=== PATIENT | female | born 1980 | race Caucasian/White ===

== ENCOUNTER 2017-07-14 09:34 | Emergency (ER) | payer MEDICAID ==
[~2017-07-14] VITALS: Ht 152.4 cm; Wt 117.9 kg
--- NOTE | 2017-07-14 10:05 | Emergency Room Report ---
History of Present Illness Time Seen by [id number] Presenting Problem in Triage Pt arrived:Walked Presenting Problem:PT REPORTS R KNEE AND LOWER LEG PAIN THAT BEGAN YESTERDAY. PT REPORTS PAIN WORSENS WITH MOVEMENT. Onset of symptoms date/time:07/13/17 or onset unknown for: Treatment Prior to Arrival: [employer] Provided by: Sepsis Risk Assessment: Temp: 97.8 B/P: 140/83 MAP: 102 Pulse: 92 Resp: 18 Recent fever? N Clinical Suspician of Infection? N Mental Status: 1 - Regular (Normal Baseline) Sepsis Risk:Low Sepsis Risk Have you (or family members/close friends) recently traveled outside the [place]? N If Yes, where/when: Have you had exposure to infectious disease within the past month? N TB? Other? 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 Pain with flexion of knee, mostly medial knee pain, and reports a history of a "pop" several months ago and has had medial knee pain with movement since that time. She reports no pain with WB, no swelling, no numbness, no calf pain. Some relief with Ibuprofen PRN. Exam Limitations no limitations ALLERGIES Coded Allergies: latex (10/05/15) History Medical History General CAD? No Angina: No MD: No Hypertension? No Hyperlipidemia? No CHF? No DVT? No PE? No COPD? No Asthma? No Anemia? No GERD? No Gastric ulcers? No GI Bleed? No Hernia? No Thyroid Problems? No Hypothyroidism? No CVA? No Seizures? No Diabetes? No Insulin Dependent: No Insulin Pump: No Home FSBS? No Renal Insuffiency? No End Stage Renal Disease? No UTI? No Stones? No BPH? No GB Disease: No Nephritic Syndrome? No Asplenia? No Hepatitis? No Sickle Cell Disease? No Arthritis? No Migraines? No Cataracts? No Glaucoma? No MRSA? No HIV? No TB? No Anxiety? No Depression? No Cancer? No More? No Immunization Hx DT/Tetanus Unknown Surgical Hx Previous Surgery?Y 2001, 2006 [employer] Hx LMP On Depo Med-LMP Unknown Social History Smoking Hx Smoker: Never Smoker Tobacco: No Alcohol Alcohol: No Review of Systems All Other Systems Reviewed and Negative Musculoskeletal see HPI Physical Exam Vital Signs Vital Signs Date Time Temp Pulse Resp B/P Pulse O2 O2 Flow FiO2 Ox Delivery Rate 07/14 1039 98.0 97 16 145/92 95 07/14 1028 97 16 145/92 95 07/14 0940 97.8 92 18 140/83 97 General Appearance normal appearance, WD/WN, no apparent distress Eye Exam - bilateral eye normal exam, bilateral eye PERRL Respiratory Status No: respiratory distress. Cardiovascular no peripheral edema, normal peripheral pulses Extremities normal range of motion, normal inspection, normal capillary refill, no calf tenderness, no pedal edema, No ballottement, no rotation or shortening of limb, neg Carmenza's, some pain with flexion of knee with no asymmetry, click, or pop. Patient ambulatory with well perfused limb, brisk CR, fully sensate, strong DP and PT pulses on R. Strength 5 Upper Ext (L), 5 Upper Ext (R), 5 Lower Ext (L), 5 Lower Ext (R) Neurologic alert, normal exam, no motor/sensory deficits, oriented x 3 Glascow Coma Scale Glascow Coma Scale Response Value EYE response: 4 Spontaneously 4 MOTOR response: 6 OBEYS 6 VERBAL response: 5 Oriented & Converses 5 Total 15 Medical Decision Making LABS/Meds/Orders Pt receiving controlled substance in ED? No Results/Orders Orders Procedure Date/time Status KNEE-3 VIEWS-RT 07/14 0945 Active XRAY/CT/US XRAY/CT/US XRAY knee XR interpretation by reviewed by me (report reviewed) Xray Results normal/NAD (neg acute per report) Departure Departure Time of Disposition 1021 Disposition DC Home or Self Care(routine) Clinical Impression Primary Impression: Knee pain, right Qualifiers: Chronicity: unspecified Qualified Code: M25.561 - Pain in right knee Condition STABLE Referrals NAOMI YAP, CLARISSA (Family) Patient Instructions DI for Knee Pain Additional Instructions Naproxen instead of Ibuprofen, see Clarissa next week for recheck Discharge Counseling Counseled pt/family regarding diagnosis, test results, medications/RX, home care, follow up needs Prescriptions Current Visit Scripts NAPROXEN (NAPROXEN 500MG TAB) 500 MG PO BIDP PRN pain #20 TAB ED Critical Care Critical Care No at 2030
--- NOTE | 2017-07-14 10:15 | RADIOLOGY REPORT PS360 ---
KNEE-3 VIEWS-RT HISTORY: PAIN, WORSENS WITH MOVEMENT Patient Age: 36 years: Female Ordering Physician: TECHNIQUE: 3 view right knee nonweightbearing COMPARISON : None FINDINGS No fracture. Joint space fairly well maintained on this nonweightbearing study.. Minor sharpening the margins of tibial plateau questionably reflect some scant early degenerative changes but unimpressive Lateral view shows no joint effusion. IMPRESSION: Right knee intact. No acute findings Joint space well maintained Perhaps very minor sharpening at margins of tibial plateau- could reflect scant very early degenerative features but unimpressive
[2017-07-14] MEDS ORDERED: NAPROXEN SODIU500 MG PO (10:22)
[2017-07-14 10:39] VITALS: BP 145/92
== END 2017-07-14 10:39 | disposition home or self-care (01) ==
LOC: ER 09:34
DX: M25.561 Pain in right knee (principal); Z91.040 Latex allergy status